=== PATIENT | male | born 1960 | race Caucasian/White ===

== ENCOUNTER → 2021-09-25 13:59 | Outpatient (BNVA) | payer BC, SELFPAY | PROVIDERS: Visit Provider Family Medicine | DX: R06.02 Shortness of breath (principal) | CPT/HCPCS: 71046 ==

== ENCOUNTER → 2022-02-20 13:22 | Outpatient (BNVA) | payer BC, SELFPAY | PROVIDERS: Visit Provider Emergency Medicine | DX: R69 Illness, unspecified (principal) | CPT/HCPCS: 87400 ==

== ENCOUNTER 2022-03-09 15:31 | Emergency (ER) | payer BC, MEDICAID, SELFPAY ==
[2022-03-09 15:36] VITALS: BP 162/88; PULSE 96; RESP 18; TEMP 36.7; O2SAT 98
--- NOTE | 2022-03-09 15:51 | W.ED.ABDPA2 ---
HPI - Abdominal Pain General: Chief Complaint: Abdominal Pain Stated Complaint: Abd pains on Left side Time Seen by Provider: 03/09/22 15:46 Source: patient Mode of arrival: ambulatory History of Present Illness: 62-year-old male presents emergency room complaining of left inguinal pain. Patient reports left ilioinguinal pain and discomfort. This pain began about a week and a half ago after he lifted a heavy bucket of hydraulic fluid. It is decreased when he lays flat it is worse when he is up and moving around he states he gets worse as the day goes on when he is trying to work. He was initially seen by his primary care doctor and then seen in the emergency room in [facility] he states they did a CT and said he had some herniations. On further discussion there is a concern of hernias he relates they told him 1 in his inguinal region and another in his umbilicus. He has not had any nausea or vomiting or diarrhea he is not hematochezia or melena he has been able to eat or drink without any difficulty. MD elicited complaint: other (Left inguinal pain) Pertinent past history: other (Stomal hernia began suddenly while lifting heavy object) Onset (ago): day(s) (9) Pain Consistency: constant Location: Groin Severity: moderate Quality: sharp Radiation: other (Left thigh) Exacerbating factors: nothing Relieving factors: nothing Associated Symptoms: Reports GI cramping; Denies anorexia, belching, bloating, change in bowel habits, change in stool character, chills, coffee ground emesis, constipation, diarrhea, dyspepsia, dysuria, excessive flatus, fever(s), heartburn, hematochezia, hematuria, hematemesis, fecal incontinence, loose stools, melena, nausea, poor appetite, syncope and vomiting Review of Systems Const: Denies: fever(s), chills, fatigue or malaise ENMT: Denies: throat pain, ear or mastoid pain, nasal discharge or nasal congestion Card: Denies: chest pain, palpitations, irregular heart rhythm, edema, swelling of feet/ankles or syncope Resp: Denies: dyspnea, productive cough or non-productive cough GI: Reports: GI cramping; Denies: abdominal pain, nausea, vomiting, hematemesis, coffee ground emesis, heartburn, diarrhea, constipation, bloating, belching, excessive flatus, fecal incontinence, change in bowel habits, change in stool character, hematochezia or melena : Denies: dysuria or hematuria Skin/Breast: Denies: rash or pruritus PFSH ED PFSH: Medical History (Updated 03/09/22 @ 16:14 by Dima Panda DO) GERD (gastroesophageal reflux disease) Surgical History (Updated 03/09/22 @ 16:14 by Dima Panda DO) No significant past surgical history Social History (Updated 03/09/22 @ 16:15 by Dima Panda DO) Smoking and tobacco status: never smoked Physical Exam Const: GENERAL APPEARANCE: cooperative and comfortable ORIENTATION/CONSCIOUSNESS: Yes awake, Yes oriented to person, Yes oriented to place and Yes oriented to time HENMT: COMMON NORMALS: normocephalic, atraumatic and hearing grossly normal bilaterally HEAD & SCALP: normocephalic and atraumatic Resp: COMMON NORMALS: normal respiratory effort, No retractions, No use of accessory muscles and clear to auscultation bilaterally AUSCULTATION: clear to auscultation bilaterally Cardio: COMMON NORMALS: regular rate, regular rhythm and No murmurs present (Cardio) RATE: regular rate RHYTHM: regular rhythm GI: COMMON NORMALS: Soft to palpation and No hepatosplenomegaly present AUSCULTATION: Yes normoactive bowel sounds PALPATION: Yes Soft to palpation, No Tenderness to palpation present (GI), No Guarding due to palpation present (GI) and Yes No hepatosplenomegaly present OTHER: Buccal hernia defect but no herniation present. Examination of the left ilioinguinal area ilioinguinal ligament is exquisitely tender there is no identifiable inguinal hernia direct or indirect. Extremity: COMMON NORMALS: normal to inspection, capillary refill normal, no clubbing, cyanosis or edema, no calf tenderness and no pedal edema Neuro: SENSORIUM/ORIENTATION: Yes oriented to person, Yes oriented to place and Yes oriented to time DEEP TENDON REFLEXES: Right patellar reflex intensity grade: 2+ and Left patellar reflex intensity grade: 2+ OTHER: Dorsum plantar flexion strength 5 of 5 sensation lower extremities normal Skin: COMMON NORMALS: no rashes or lesions noted GENERAL SKIN EXAM: no rashes or lesions noted Course Vital Signs: Vital signs: Vital Signs Temperature 98.1 F 03/09/22 15:36 Pulse Rate 96 01/13/23 15:36 Respiratory Rate 18 03/09/22 15:36 Blood Pressure 162/88 03/09/22 15:36 Pulse Oximetry 98 03/09/22 15:36 MDM - Abdominal Pain Medical Decision Making Exam shows no evidence of nerve impingement and was talking to him initially I thought he is that he had herniated disc. On exam I can palpate is umbilical hernia defect but there is no hernias tracts protruding through no physical exam findings of inguinal hernia there is a physical exam finding of exquisite tenderness in that region. Treating with anti-inflammatories muscle relaxers limit activity as tolerated follow-up with primary care if not improving Medical Records I reviewed the patient's medical records. Lab Data I reviewed the patient's lab results. Discharge Plan Discharge Patient Disposition: Home Clinical Impression: Ilio-inguinal strain Condition: Stable Prescriptions: New Medrol (Toni) 4 mg tablets,dose pack See Rx Instructions .ROUTE .COMPLEX Qty: 21 0RF Rx Instructions: orally per package directions tizanidine 4 mg tablet 4 mg PO Q6H PRN (Reason: muscle spasticity) Qty: 20 0RF Rx Instructions: do not exceed 3 doses per 24 hrs No Action albuterol sulfate 90 mcg/actuation HFA aerosol inhaler 2 puff inhalation Q6H PRN (Reason: shortness of breath or wheezing) Qty: 8.5 0RF [id number]-[id number]-GN [Bromfed DM] 2-30-10 mg/5 mL syrup 7.5 ml PO Q6H PRN (Reason: cold symptoms) Qty: 160 0RF doxycycline hyclate 100 mg tablet 100 mg PO BID 7 Days Qty: 14 0RF oseltamivir [Tamiflu] 75 mg capsule 75 mg PO BID 5 Days Qty: 10 0RF prednisone 20 mg tablet 20 mg PO DAILY 5 Days Qty: 5 0RF famotidine [Pepcid] 40 mg tablet 40 mg PO BID 56 Days Qty: 120 0RF Discharge Orders: Discharge ED (Routine); Ordered 03/09/22 Ordered By: Dima Panda Referrals: Anum Morales MD [Primary Care Provider] - Discharge Diet: Usual diet Discharge Activity: Resume usual activity Patient Instructions: Opioid Safety, Pain Management Activity Restrictions/Additional Instructions: You are seen today for pain in the left groin. On exam there was no sign of hernias and no signs of nerve impingement to the left lower extremity. You did have severe discomfort with palpation on the ilioinguinal ligament. Given the history related suspect you have a muscle strain in that region. You were given prednisone taper and muscle relaxer tizanidine. You can use Tylenol with this as well. You had an allergy listed to naproxen so you were not given any nonsteroidal anti-inflammatories. 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
[2022-03-09] MEDS: dexamethasone 10 mg/mL INJ IM (16:27)
[2022-03-09] MEDS: orphenadrine 30 mg/mL Inj 2 mL 60 MG IM (16:28)
== END 2022-03-09 16:37 | disposition home or self-care (01) ==
PROVIDERS: Emergency Provider Family Medicine; PCP Family Medicine
DX: S39.011A Strain of muscle, fascia and tendon of abdomen, initial encounter (principal); X50.0XXA Overexertion from strenuous movement or load, initial encounter
CPT/HCPCS: 96372; 99284; J1100; J2360

== ENCOUNTER 2022-05-10 07:48 | Day surgery (SDC) | payer BC, MEDICAID, SELFPAY ==
[2022-05-10] VITALS (16 sets, daily range): BP systolic 140–175; BP diastolic 80–117; PULSE 67–90; RESP 13–19; TEMP 36.2–36.8; O2SAT 92–99; BMI 32.8
--- NOTE | 2022-05-10 08:03 | W.PM.OPSUD ---
Surgery/Procedure H&P Update DATE OF PROCEDURE: May 10, 2022 DATE H&P PERFORMED: 04/17/22 H&P UPDATE INFORMATION: I have reviewed H&P completed within last 30 days, I have examined patient prior to procedure and No changes to prior documentation PREOP DIAGNOSIS: Left inguinal and umbilical hernias PLANNED PROCEDURE: Operation Date: 05/10/22 09:35 Proposed Procedures p 32429 [id number] lap reapir of left inguinal hernia with mesh and lap umbilical hernia repair with mesh K42.9 K40.90(Left) - DO colby Nguyen Laparoscopic Ventral Hernia Repair Laparoscopic Umbilical Hernia Repair(Not Applicable) - Андрей Jaimes DO
[2022-05-10] MEDS: sodium chloride 0.9% 1,000 ML 30 ML IV (08:56)
--- NOTE | 2022-05-10 08:59 | ANES.PREANE2 ---
Pre-Anesthetic Assessment Height/Weight: Height 1.83 m Weight 109.769 kg Temp Pulse Resp BP Pulse Ox O2 Del Method 97.7 F 83 18 162/95 99 05/10/22 08:30 05/10/22 08:30 05/10/22 08:30 05/10/22 08:30 05/10/22 08:30 05/10/22 08:30 Preop Diagnosis: Left inguinal and umbilical hernias Operation Date: 05/10/22 09:35 Proposed Procedures p [id number] lap reapir of left inguinal hernia with mesh and lap umbilical hernia repair with mesh K42.9 K40.90(Left) - DO colby Nguyen Laparoscopic Ventral Hernia Repair Laparoscopic Umbilical Hernia Repair(Not Applicable) - Андрей Jaimes DO Familial anesthetic complications: none Was Beta Freddy taken within 24 hours: N/A Was Clonidine taken within 24 hours: N/A Last intake: Intake Last Liquid Date 05/09/22 Last Liquid Time 23:30 Last Solid Date 05/09/22 Last Solid Time 23:30 Social Tobacco and No alcohol Exam alert, oriented x 3 and regular rate & rhythm rhonchi Airway Submandibular: within normal limits Cervical ROM: within normal limits Mallampati: Class II Dentition: false CV/HEM Hypertension GI Gastroesophageal Reflux Disease Metabolic Morbid Obesity Anesthetic Plan ASA status: 3 Anesthesia: General and Regional (specify below) (Discussed potential rectus sheath blk and left TAP blk) Medications/Allergies Home Medications Medication Instructions Recorded Confirmed Last Taken Type amlodipine 2.5 mg tablet 2.5 mg PO DAILY 90 days #90 tabs 04/26/22 05/09/22 05/08/22 Rx Allergies Allergy/AdvReac Type Severity Reaction Status Date / Time baclofen Allergy Severe throat Verified 05/09/22 08:45 swelling, jaw pain butorphanol [From Stadol] Allergy Mild rash Verified 05/09/22 08:45 tramadol Allergy Mild rash Verified 05/09/22 08:45 naproxen Allergy itch Verified 05/09/22 08:45 prednisone Allergy high BP/ Verified 05/09/22 08:45 anyphalaxis Current Medications Generic Name Dose Route Start Last Admin Trade Name Freq PRN Reason Stop Dose Admin Sodium Chloride 1,000 mls @ 30 mls/hr 05/10/22 08:15 05/10/22 08:56 Sodium Chloride 0.9% IV 05/11/22 08:14 30 mls/hr .Q24H LOU Administration PFSH Anesthesia Medical History (Updated 04/26/22 @ 13:52 by Anum Morales MD) GERD (gastroesophageal reflux disease) Surgical History (Updated 04/26/22 @ 13:44 by Anum Morales MD) No significant past surgical history Family History Mother Diabetes Hypertension Stroke Denies family history of Clotting disorder Chronic kidney disease (CKD) Bleeding disorder Family history of premature coronary artery disease Cancer Thyroid disease Social History Smoking and tobacco status: current every day smoker cigarettes Alcohol intake: former Data Anesthesia Cardiac Studies: No Data to Display
[2022-05-10] MEDS: ceFAZolin 2,000 MG in sodium chloride 0.9% (plus) 50 ML 100 MG IV (09:49)
[2022-05-10] MEDS: lidocaine-epi 2% 20 mL INJ INJECTION (10:19)
--- NOTE | 2022-05-10 11:18 | P.OP_ITS ---
Operative Report Date of procedure: May 10, 2022 Pre-op diagnosis: Preop Diagnosis Left inguinal and umbilical hernias Post-op diagnosis: same Procedure done: Laparoscopic (ADELA) left inguinal hernia and Laparoscopic umbilical hernia repairs with mesh Implants: Left extra-large 3D max Bard mesh 11 cm Ventralight mesh Specimens removed/disposition: Hernia sac Surgeon: Dr. Андрей Jaimes DO Anesthesia: General Estimated blood loss (mL): 5 Complications: None apparent Brief History: This is a very pleasant 62-year-old gentleman with a left inguinal hernia and umbilical hernia. He desires repair of both. The risk and benefits were explained and documented. Procedure: Patient was wheeled into the operative room and placed on the OR table in a khan pine position. Abdomen was inspected prepped and draped in usual sterile fashion. Time-out was performed and all present were in agreement. A 15 blade scalp was used to make a 5 millimeter incision left upper quadrant. A Veress needle was placed into the incision and intra-abdominal insufflation was brought to 15 millimeters of mercury. A 12 millimeter trocar was placed into the left lower quadrant. A 5 mm trocar was placed into the right mid abdomen. The peritoneum was then taken down over the left groin using the Enseal and Endo Kitners. The hernia sac was stripped away from the spermatic cord and an indirect left inguinal hernia was identified. An extra-large 3D max Bard mesh was then placed over the spermatic cord and tacked onto the pubis using the capsure device. The mesh laid nicely over the spermatic cord. The peritoneum was then tacked back in place using a secure strap. Attention was then brought to the umbilical hernia. The energy but device was then used to cut out the hernia sac around the umbilical hernia. An 11 cm Ventralight mesh was placed into the abdomen and brought up through the umbilicus using an the Alejandro- Rain. The mesh was then tacked in place in a double crown fashion. The skeleton of the mesh was removed via the left lower quadrant. The hernia sac was then removed from the abdomen via the left lower quadrant. The left lower quadrant port site was closed with an 0 Vicryl suture in a Alejandro-Rain in a [id number] fashion. Incisions were closed with 4 O Vicryl in a subcuticular interrupted fashion. Skin glue was applied. A dressing that included cotton balls and a Tegaderm was placed over the umbilicus. Patient tolerated the procedure well.
[2022-05-10] MEDS: fentaNYL 50 mcg/mL INJ 2mL IVP ×2 (11:42→12:58)
[2022-05-10] MEDS: hyDRALAzine 20 mg/mL INJ 1 mL 10 MG IVP (12:06)
--- NOTE | 2022-05-10 12:59 | SUR.PHASEII ---
12:45 PT WITH INCREASE IN ABDOMEN PAIN. REVIEWED WITH DOCTOR OCHOA. ABDOMENAL BINDER APPLIED. IV PAIN MED GIVEN.
[2022-05-10] MEDS: HYDROcodone-acetaminophen 10-325 mg Tablet 1 TAB PO (13:06)
--- NOTE | 2022-05-10 14:39 | ANE.PACU2 ---
Inpatient post-anesthesia follow up: Airway intact: Yes Vital signs: Temperature 98.2 F Pulse Rate 90 Respiratory Rate 16 Blood Pressure 147/90 Pulse Oximetry 94 Oxygen Delivery Me thod Room Air Oxygen Flow Rate 6 Fraction of Inspir ed Oxygen Hydration adequate: Yes Nausea and vomiting: No Pain level: 2 Mental status: Baseline
== END 2022-05-10 13:45 | disposition home or self-care (01) ==
PROVIDERS: PCP Family Medicine; Visit Provider Surgery
PROC: (CPT 49650; principal; 2022-05-10 09:25)
PROC: 0WQF4ZZ Repair Abdominal Wall, Percutaneous Endoscopic Approach (ICD-10-PCS; CPT 49591; 2022-05-10 09:25)
DX: K40.90 Unilateral inguinal hernia, without obstruction or gangrene, not specified as recurrent (principal); K42.9 Umbilical hernia without obstruction or gangrene; K21.9 Gastro-esophageal reflux disease without esophagitis; E66.01 Morbid (severe) obesity due to excess calories; F17.210 Nicotine dependence, cigarettes, uncomplicated; Z68.32 Body mass index [BMI] 32.0-32.9, adult
CPT/HCPCS: 49591; 49650; 51702; 88302; C1781; J0360; J0690; J1100; J1170; J1790; J2405; J2704; J2710; J2795; J3010; J3490; J7030

== ENCOUNTER → 2023-05-10 13:51 | Outpatient (BNVA) | payer BC, MEDICAID, SELFPAY | PROVIDERS: PCP Family Medicine; Visit Provider Emergency Medicine | DX: R07.89 Other chest pain (principal); R05.9 Cough, unspecified; R06.00 Dyspnea, unspecified | CPT/HCPCS: 71046 ==

== ENCOUNTER 2023-05-10 15:33 | Emergency (ER) | payer BC, MEDICAID, SELFPAY ==
--- NOTE | 2023-05-10 15:35 | ECG_ITS ---
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 Measurements Intervals [place] Rate: 76 P: 45 OK: 152 QRS: 49 QRSD: 110 T: 42 QT: 383 QTc: 433 Interpretive Statements SINUS RHYTHM WITH SINUS ARRHYTHMIA NONSPECIFIC T-WAVE ABNORMALITY No previous ECG available for comparison Electronically Signed On 05-10-2023 22:01:14 CDT by Guy Friedman M.D. [id number]
[2023-05-10 15:36] VITALS: BP 150/90; PULSE 70; RESP 16; TEMP 36.6; O2SAT 98
[2023-05-10 15:57] VITALS: BP 147/102; PULSE 67; O2SAT 96
--- NOTE | 2023-05-10 16:07 | XRR_ITS ---
PROCEDURE INFORMATION: Exam: XR Chest Exam date and time: 05/10/2023 4:21 PM Age: 63 years old Clinical indication: Cough and dyspnea; Additional info: Dyspnea/cough TECHNIQUE: Imaging protocol: Radiologic exam of the chest. Views: 1 view. COMPARISON: CR XR chest 2V* [id number] 05/10/2023 2:02 PM FINDINGS: Lungs: No focal consolidation. Left basilar hazy opacities compatible with atelectasis or developing infection in the proper clinical setting. Pleural spaces: No evidence of pneumothorax. No evidence of pleural effusion. Heart/Mediastinum: Cardiomediastinal silhouette is within normal limits. Bones/joints: No evidence of acute osseous abnormality. XR/XR chest 1V portable [id number] IMPRESSION: 1. Left basilar hazy opacities compatible with atelectasis or developing infection in the proper clinical setting.
[2023-05-10 16:14] LABS: Basophils # 0.1 10^3/uL (0.0-0.1); Basophils % 0.8 %; Eosinophils # 0.3 10^3/uL (0.0-0.8); Eosinophils % 3.3 %; Lymphocytes # 3.2 10^3/uL (0.8-4.8); Lymphocytes % 35.3 %; Mean Corpuscular HGB Conc 35.2 g/dL (30-55); Mean Corpuscular Hemoglobin 31.6 pg (27-33); Mean Corpuscular Volume 89.8 fl (82-101); Mean Platelet Volume 11.1 fL (7.4-10.4); Monocytes # 0.5 10^3/uL (0.2-0.9); Neutrophils % 54.4 %; Nucleated Red Blood Cells % 0 %; Platelet Count 217 10^3/cmm (157-399); Red Blood Count 5.12 10^6/uL (3.85-5.65); Red Cell Distribution Width 12.9 % (12.1-15.1); White Blood Count 9.01 10^3/uL (3.29-11.43)
--- NOTE | 2023-05-10 16:21 | ED_ITS ---
Documented by User: Dima Panda DO 05/11/23 08:27 HPI - Chest Pain 2 General: Chief Complaint: Chest Pain Stated Complaint: chest pains Time Seen by Provider: 05/10/23 16:06 Source: patient Mode of arrival: ambulatory History of Present Illness: 63-year-old male presents emergency room directed here for the primary care clinic. He is seeing one of the nurse practitioners who advised an he had abnormal heart sounds and abnormal EKG. He is also complaining of some chest discomfort. Do not have a copy of the EKG from the clinic but his EKG in the emergency room showed normal sinus rhythm with no specific abnormalities no ST changes. He is complaining of what he describes as a sticky spot on the left side of his chest with some pain in his back none of the pain is reproducible has not noticed anything that exacerbates or relieves the discomfort. MD complaint: chest pain Associated symptoms: Deny abdominal pain, dyspnea or fever(s) Review of Systems 2 Const: Denies: fever(s) or chills Card: Denies: chest pain Resp: Denies: dyspnea GI: Denies: abdominal pain : Denies: dysuria, urinary frequency or urinary urgency Musc: Denies: neck pain or back pain Skin/Breast: Denies: rash PFSH ED 2 PFSH: Medical History GERD (gastroesophageal reflux disease) Surgical History History of umbilical hernia repair History of left inguinal hernia repair No significant past surgical history Family History Mother Diabetes Hypertension Stroke Denies family history of Clotting disorder Chronic kidney disease (CKD) Bleeding disorder Family history of premature coronary artery disease Cancer Thyroid disease Social History Smoking and tobacco/nicotine status: current every day tobacco/nicotine user cigarettes Alcohol intake: former Physical Exam 2 Const: COMMON NORMALS: no acute distress GENERAL APPEARANCE: cooperative and comfortable ORIENTATION/CONSCIOUSNESS: Yes awake, Yes oriented to person, Yes oriented to place and Yes oriented to time HENMT: COMMON NORMALS: normocephalic, atraumatic and hearing grossly normal bilaterally HEAD & SCALP: normocephalic and atraumatic Resp: COMMON NORMALS: normal respiratory effort, No retractions and No use of accessory muscles AUSCULTATION: rales on the left in the lower lung hurtado Cardio: COMMON NORMALS: regular rate, regular rhythm and No murmurs present (Cardio) RATE: regular rate RHYTHM: regular rhythm GI: COMMON NORMALS: Soft to palpation and No hepatosplenomegaly present A USCULTATION: Yes normoactive bowel sounds PALPATION: Yes Soft to palpation, No Tenderness to palpation present (GI), No Guarding due to palpation present (GI) and Yes No hepatosplenomegaly present Extremity: COMMON NORMALS: normal to inspection, capillary refill normal, no clubbing, cyanosis or edema, no calf tenderness and no pedal edema Neuro: SENSORIUM/ORIENTATION: Yes oriented to person, Yes oriented to place and Yes oriented to time Skin: COMMON NORMALS: no rashes or lesions noted GENERAL SKIN EXAM: no rashes or lesions noted Course 2 Vital Signs: Vital signs: Vital Signs Temperature 97.9 F 05/10/23 15:36 Pulse Rate 63 05/10/23 18:30 Respiratory Rate 16 05/10/23 15:36 Blood Pressure 127/96 05/10/23 18:30 Pulse Oximetry 90 05/10/23 18:30 Oxygen Delivery Me thod Room Air 05/10/23 18:30 MDM - Chest Pain Medical Decision Making Care signed out to Dr. Hardin at change of shift. See final notes for diagnosis and disposition. I have discussed the patient's case with the off going physician <Dr. Panda> and I have assumed care of the patient. We have discussed the current lab/radiographic results that have been resulted and the pending tests. Given review of the patient's laboratory evaluation radiograph examination and discussion Dr. Panda I will contact the hospitalist physician to request admission for left lower lobe pneumonia and will provide antibiotics initially while here in the emergency department. Medical Records I reviewed the patient's medical records. Lab Data I reviewed the patient's lab results. 05/10/23 16:02 05/10/23 16:02 Radiology Impressions Chest X-Ray 05/10/23 16:07 IMPRESSION: 1. Left basilar hazy opacities compatible with atelectasis or developing infection in the proper clinical setting. Laboratory Results WBC 9.01 10^3/uL (3.29-11.43) 05/10/23 16:02 RBC 5.12 10^6/uL (3.85-5.65) 05/10/23 16:02 Hgb 16.20 g/dL (11.27-16.99) 05/10/23 16:02 Hct 46.0 % (37-53) 05/10/23 16:02 MCV 89.8 fl (82-101) 05/10/23 16:02 MCH 31.6 pg (27-33) 05/10/23 16:02 MCHC 35.2 g/dL (30-55) 05/10/23 16:02 RDW 12.9 % (12.1-15.1) 05/10/23 16:02 Plt Count 217 10^3/cmm (157-399) 05/10/23 16:02 MPV 11.1 fL (7.4-10.4) H 05/10/23 16:02 Neut % (Auto) 54.4 % 05/10/23 16:02 Lymph % (Auto) 35.3 % 05/10/23 16:02 [place] % (Auto) 6.0 % 05/10/23 16:02 Eos % (Auto) 3.3 % 05/10/23 16:02 Baso % (Auto) 0.8 % 05/10/23 16:02 Neut # (Auto) 4.90 10^3/uL (1.8-7.7) 05/10/23 16:02 Lymph # (Auto) 3.2 10^3/uL (0.8-4.8) 05/10/23 16:02 [place] # (Auto) 0.5 10^3/uL (0.2-0.9) 05/10/23 16:02 Eos # (Auto) 0.3 10^3/uL (0.0-0.8) 05/10/23 16:02 Baso # (Auto) 0.1 10^3/uL (0.0-0.1) 05/10/23 16:02 Nucleated RBC % (auto) 0 % 05/10/23 16:02 Nucleated RBCs # 0.0 /100WBC 05/10/23 16:02 Sodium 141 mmol/L (136-145) 05/10/23 16:02 Potassium 4.0 mmol/L (3.5-5.1) 05/10/23 16:02 Chloride 105 mmol/L (98-107) 05/10/23 16:02 Carbon Dioxide 22 mmol/L (22-29) 05/10/23 16:02 Anion Gap 18.0 (5-19) 05/10/23 16:02 BUN 14 mg/dL (8-23) 05/10/23 16:02 Creatinine 0.9 mg/dL (0.7-1.2) 05/10/23 16:02 GFR Calculation 85.8 mL/min (90-130) L 05/10/23 16:02 Glucose 88 mg/dL (65-115) 05/10/23 16:02 Calculated Osmolality 292 mOsm/kg (285-295) 05/10/23 16:02 Calcium 9.4 mg/dL (8.5-10.5) 05/10/23 16:02 Total Bilirubin 0.6 mg/dL (0.15-1.2) 05/10/23 16:02 AST 16 U/L (0-40) 05/10/23 16:02 ALT 20 U/L (0-41) 05/10/23 16:02 Alkaline Phosphatase 104 U/L (40-130) 05/10/23 16:02 Troponin T Baseline < 6 ng/L (0-15) 05/10/23 16:02 Troponin T 120 Minute 6.00 ng/L (0-15) 05/10/23 17:46 Delta Troponin T 0.94679 ABS# (0-10) 05/10/23 17:46 Total Protein 7.0 g/dL (6.6-8.7) 05/10/23 16:02 Albumin 4.6 g/dL (3.5-5.2) 05/10/23 16:02 Globulin 2.4 g/dL (1.3-4.6) 05/10/23 16:02 Procalcitonin 0.08 ng/mL (0-0.5) 05/10/23 17:46 Discharge Plan Discharge Patient Disposition: Home Clinical Impression: Chest pain in adult PNA (pneumonia) Qualifiers: Pneumonia type: due to unspecified organism Laterality: left Lung location: l ower lobe of lung Qualified Code(s): J18.9 - Pneumonia, unspecified organism Condition: Stable Prescriptions: New levofloxacin 750 mg tablet 750 mg PO DAILY 7 Days Qty: 7 0RF guaifenesin 1,200 mg tablet extended release 12hr 1,200 mg PO BID Qty: 14 0RF No Action albuterol sulfate 90 mcg/actuation HFA aerosol inhaler 2 puff inhalation QID PRN (Reason: shortness of breath or wheezing) Qty: 8.5 0RF Discharge Orders: Discharge ED (Routine); Ordered 05/10/23 Ordered By: Anthony Hardin Referrals: Андрей Jaimes DO [Physician] - (EGD/colonoscopy) Anum Morales MD [Primary Care Provider] - Discharge Diet: Usual diet Discharge Activity: Resume usual activity Patient Instructions: Opioid Safety, Pain Management Activity Restrictions/Additional Instructions: Activity Restrictions/Additional Instructions: Thank you for choosing [facility] for your healthcare needs today. Please realize that you were seen in the Emergency Department and that we are providing you with an emergency medical screening exam and this may not be a complete and all inclusive of all the testing and or medical work-up that you may need to determine your ailment or severity of your illness. It is very important that you follow-up as instructed with your Primary care provider or Specialist for additional evaluation and to discuss your medical treatment plan. You may return to the Emergency Department should you have concerns or if your condition changes or worsens in any way. Coding Level of Care Code ED Gymnastics Coach for Chg Fwd Documented by User: Anthony Hardin MD 05/10/23 19:39 HPI - Chest Pain 2 General: Chief Complaint: Chest Pain Stated Complaint: chest pains Time Seen by Provider: 05/10/23 16:06 [facility] ED 2 PFSH: Medical History GERD (gastroesophageal reflux disease) Surgical History History of umbilical hernia repair History of left inguinal hernia repair No significant past surgical history Family History Mother Diabetes Hypertension Stroke Denies family history of Clotting disorder Chronic kidney disease (CKD) Bleeding disorder Family history of premature coronary artery disease Cancer Thyroid disease Social History Smoking and tobacco/nicotine status: current every day tobacco/nicotine user cigarettes Alcohol intake: former Course 2 Vital Signs: Vital signs: Vital Signs Temperature 97.9 F 05/10/23 15:36 Pulse Rate 63 05/10/23 18:30 Respiratory Rate 16 05/10/23 15:36 Blood Pressure 127/96 05/10/23 18:30 Pulse Oximetry 90 05/10/23 18:30 Oxygen Delivery Me thod Room Air 05/10/23 18:30 MDM - Chest Pain Medical Decision Making I have discussed the patient's case with the off going physician <Dr. Panda> and I have assumed care of the patient. We have discussed the current lab/radiographic results that have been resulted and the pending tests. Given review of the patient's laboratory evaluation radiograph examination and discussion Dr. Panda I will contact the hospitalist physician to request admission for left lower lobe pneumonia and will provide antibiotics initially while here in the emergency department. Lab Data 05/10/23 16:02 05/10/23 16:02 Radiology Impressions Chest X-Ray 05/10/23 16:07 IMPRESSION: 1. Left basilar hazy opacities compatible with atelectasis or developing infection in the proper clinical setting. Laboratory Results WBC 9.01 10^3/uL (3.29-11.43) 05/10/23 16:02 RBC 5.12 10^6/uL (3.85-5.65) 05/10/23 16:02 Hgb 16.20 g/dL (11.27-16.99) 05/10/23 16:02 Hct 46.0 % (37-53) 05/10/23 16:02 MCV 89.8 fl (82-101) 05/10/23 16:02 MCH 31.6 pg (27-33) 05/10/23 16:02 MCHC 35.2 g/dL (30-55) 05/10/23 16:02 RDW 12.9 % (12.1-15.1) 05/10/23 16:02 Plt Count 217 10^3/cmm (157-399) 05/10/23 16:02 MPV 11.1 fL (7.4-10.4) H 05/10/23 16:02 Neut % (Auto) 54.4 % 05/10/23 16:02 Lymph % (Auto) 35.3 % 05/10/23 16:02 [place] % (Auto) 6.0 % 05/10/23 16:02 Eos % (Auto) 3.3 % 05/10/23 16:02 Baso % (Auto) 0.8 % 05/10/23 16:02 Neut # (Auto) 4.90 10^3/uL (1.8-7.7) 05/10/23 16:02 Lymph # (Auto) 3.2 10^3/uL (0.8-4.8) 05/10/23 16:02 [place] # (Auto) 0.5 10^3/uL (0.2-0.9) 05/10/23 16:02 Eos # (Auto) 0.3 10^3/uL (0.0-0.8) 05/10/23 16:02 Baso # (Auto) 0.1 10^3/uL (0.0-0.1) 05/10/23 16:02 Nucleated RBC % (auto) 0 % 05/10/23 16:02 Nucleated RBCs # 0.0 /100WBC 05/10/23 16:02 Sodium 141 mmol/L (136-145) 05/10/23 16:02 Potassium 4.0 mmol/L (3.5-5.1) 05/10/23 16:02 Chloride 105 mmol/L (98-107) 05/10/23 16:02 Carbon Dioxide 22 mmol/L (22-29) 05/10/23 16:02 Anion Gap 18.0 (5-19) 05/10/23 16:02 BUN 14 mg/dL (8-23) 05/10/23 16:02 Creatinine 0.9 mg/dL (0.7-1.2) 05/10/23 16:02 GFR Calculation 85.8 mL/min (90-130) L 05/10/23 16:02 Glucose 88 mg/dL (65-115) 05/10/23 16:02 Calculated Osmolality 292 mOsm/kg (285-295) 05/10/23 16:02 Calcium 9.4 mg/dL (8.5-10.5) 05/10/23 16:02 Total Bilirubin 0.6 mg/dL (0.15-1.2) 05/10/23 16:02 AST 16 U/L (0-40) 05/10/23 16:02 ALT 20 U/L (0-41) 05/10/23 16:02 Alkaline Phosphatase 104 U/L (40-130) 05/10/23 16:02 Troponin T Baseline < 6 ng/L (0-15) 05/10/23 16:02 Troponin T 120 Minute 6.00 ng/L (0-15) 05/10/23 17:46 Delta Troponin T 0.10710 ABS# (0-10) 05/10/23 17:46 Total Protein 7.0 g/dL (6.6-8.7) 05/10/23 16:02 Albumin 4.6 g/dL (3.5-5.2) 05/10/23 16:02 Globulin 2.4 g/dL (1.3-4.6) 05/10/23 16:02 Procalcitonin 0.08 ng/mL (0-0.5) 05/10/23 17:46 All radiology interpretation(s) finalized by discharge EKG Data EKG 1: Interpretation: Twelve-lead EKG obtained at 1717 reviewed at 1745 demonstrates sinus rhythm with a rate of 61 bpm, CA interval 163, QRS duration 115 QT 408 QTc [address] elevation or depression at present to demonstrate acute ischemia or infarction. Discharge Plan Discharge Patient Disposition: Home Clinical Impression: Chest pain in adult PNA (pneumonia) Qualifiers: Pneumonia type: due to unspecified organism Laterality: left Lung location: l ower lobe of lung Qualified Code(s): J18.9 - Pneumonia, unspecified organism Condition: Stable Prescriptions: New levofloxacin 750 mg tablet 750 mg PO DAILY 7 Days Qty: 7 0RF guaifenesin 1,200 mg tablet extended release 12hr 1,200 mg PO BID Qty: 14 0RF No Action albuterol sulfate 90 mcg/actuation HFA aerosol inhaler 2 puff inhalation QID PRN (Reason: shortness of breath or wheezing) Qty: 8.5 0RF Discharge Orders: Discharge ED (Routine); Ordered 05/10/23 Ordered By: Anthony Hardin Referrals: Андрей Jaimes DO [Physician] - (EGD/colonoscopy) Anum Morales MD [Primary Care Provider] - Discharge Diet: Usual diet Discharge Activity: Resume usual activity Patient Instructions: Opioid Safety, Pain Management Activity Restrictions/Additional Instructions: Activity Restrictions/Additional Instructions: Thank you for choosing [facility] for your healthcare needs today. Please realize that you were seen in the Emergency Department and that we are providing you with an emergency medical screening exam and this may not be a complete and all inclusive of all the testing and or medical work-up that you may need to determine your ailment or severity of your illness. It is very important that you follow-up as instructed with your Primary care provider or Specialist for additional evaluation and to discuss your medical treatment plan. You may return to the Emergency Department should you have concerns or if your condition changes or worsens in any way. Coding Level of Care Code ED Gymnastics Coach for Eduardo Callaway
[2023-05-10 16:27] VITALS: BP 124/88; PULSE 64; O2SAT 95
[2023-05-10 16:32] LABS: Troponin(5th) Baseline < 6 ng/L (0-15)
[2023-05-10 16:34] LABS: Alanine Aminotransferase 20 U/L (0-41); Albumin Level 4.6 g/dL (3.5-5.2); Alkaline Phosphatase 104 U/L (40-130); Aspartate Amino Transferase 16 U/L (0-40); Blood Urea Nitrogen 14 mg/dL (8-23); Calcium 9.4 mg/dL (8.5-10.5); Carbon Dioxide 22 mmol/L (22-29); Chloride 105 mmol/L (98-107); Globulin 2.4 g/dL (1.3-4.6); Glomerular Filtration Rate 85.8 mL/min (90-130); Glucose 88 mg/dL (65-115); Osmolality Calculated 292 mOsm/kg (285-295); Sodium 141 mmol/L (136-145); Total Bilirubin 0.6 mg/dL (0.15-1.2)
--- NOTE | 2023-05-10 17:17 | ECG_ITS ---
[facility] Test Date: 2023-05-10 Pat Name: Jin Kahn Department: Room: Gender: Male Linoleum Printer: : 1960 Requested By: Rylie Moore Order Number: [id number] Nicole MD: Guy Friedman M.D. Measurements Intervals [place] Rate: 61 P: 48 AR: 163 QRS: 52 QRSD: 115 T: 41 QT: 408 QTc: 411 Interpretive Statements SINUS RHYTHM WITH SINUS ARRHYTHMIA MODERATE INTRAVENTRICULAR CONDUCTION DELAY [110+ ms QRS DURATION] Compared to ECG 05/10/2023 15:37:25 Intraventricular conduction delay now present T-wave abnormality no longer present Electronically Signed On 05-10-2023 22:03:53 CDT by Guy Friedman M.D. [id number]
[2023-05-10 17:27] VITALS: BP 119/74; PULSE 62; O2SAT 95
[2023-05-10 18:00] VITALS: BP 131/86; PULSE 63; O2SAT 91
[2023-05-10 18:19] LABS: Troponin 5 2HR Delta 0.00001 ABS# (0-10)
[2023-05-10 18:30] VITALS: BP 127/96; PULSE 63; O2SAT 90
--- NOTE | 2023-05-10 19:11 | PC.NURSE ---
PER DR. PRYOR TOLD TO HOLD LEVAQUIN ABX AND TO GIVE ROCEPHIN ALTERNATIVELY. DR. PRYOR TO ORDER NEW ABX.
[2023-05-10 19:41] LABS: Procalcitonin 0.08 ng/mL (0-0.5)
[2023-05-10] MEDS: cefTRIAXone 2,000 MG in sodium chloride 0.9% (plus) 50 ML 100 MG IV (19:50)
== END 2023-05-10 20:23 | disposition home or self-care (01) ==
PROVIDERS: Physician Assistant; Emergency Provider Internal Medicine; PCP Family Medicine
DX: R07.9 Chest pain, unspecified (principal); J18.9 Pneumonia, unspecified organism; F17.210 Nicotine dependence, cigarettes, uncomplicated
CPT/HCPCS: 36415; 71045; 80053; 84145; 84484; 85025; 93005; 96365; 99285; J0696

== ENCOUNTER → 2023-05-22 11:36 | Outpatient (BNVA) | payer BC, MEDICAID, SELFPAY | PROVIDERS: PCP Family Medicine; Visit Provider Emergency Medicine | DX: J18.9 Pneumonia, unspecified organism (principal) | CPT/HCPCS: 71046 ==

== ENCOUNTER → 2023-11-19 11:15 | Outpatient (BNVA) | payer BC, MEDICAID, SELFPAY | PROVIDERS: PCP Family Medicine; Visit Provider Nurse Practitioner | DX: J20.9 Acute bronchitis, unspecified (principal); R05.9 Cough, unspecified | CPT/HCPCS: 71046 ==

== ENCOUNTER → 2024-07-21 09:59 | Outpatient (BNVA) | payer BC, MEDICAID, SELFPAY | PROVIDERS: PCP Family Medicine; Visit Provider Nurse Practitioner | DX: I10 Essential (primary) hypertension (principal) | CPT/HCPCS: 80053; 83036; 84443 ==

== ENCOUNTER 2024-07-22 11:28 | Emergency (ER) | payer BC, MEDICAID, SELFPAY ==
[2024-07-22 11:29] VITALS: BP 153/99; PULSE 69; RESP 16; TEMP 36.8; O2SAT 98
--- NOTE | 2024-07-22 11:37 | ECG_ITS ---
[facility] Test Date: 2024-07-22 Pat Name: Jin Kahn Department: Room: Gender: Male Audit Senior Associate: : [id number] Requested By: Chapo Chou Order Number: [id number] Reading MD: BATSHEVA GRANDE Measurements Intervals [place] Rate: 64 P: 56 NV: 151 QRS: 57 QRSD: 110 T: 37 QT: 387 QTc: 401 Interpretive Statements SINUS RHYTHM NONSPECIFIC T-WAVE ABNORMALITY Compared to ECG 05/10/2023 17:17:08 T-wave abnormality now present Sinus arrhythmia no longer present Intraventricular conduction delay no longer present Electronically Signed On 07-29-2024 22:47:08 CDT by BATSHEVA GRANDE [id number]
--- NOTE | 2024-07-22 11:54 | XRR_ITS ---
PROCEDURE INFORMATION: Exam: XR Chest Exam date and time: 07/22/2024 12:44 PM Age: 64 years old Clinical indication: Dyspnea TECHNIQUE: Imaging protocol: Radiologic exam of the chest. Views: 1 view. COMPARISON: CR XR chest 2V* [id number] 11/19/2023 11:29 AM FINDINGS: Lungs: Unremarkable. No consolidation. Pleural spaces: Unremarkable. No pleural effusion. No pneumothorax. Heart/Mediastinum: Unremarkable. No cardiomegaly. Bones/joints: Unremarkable. XR/XR chest 1V portable [id number] IMPRESSION: No acute findings.
[2024-07-22 12:34] LABS: Basophils # 0.1 10^3/uL (0.0-0.1); Basophils % 0.7 %; Eosinophils # 0.4 10^3/uL (0.0-0.8); Eosinophils % 4.1 %; Hematocrit 47.4 % (37-53); Lymphocytes # 2.7 10^3/uL (0.8-4.8); Lymphocytes % 28.1 %; Mean Corpuscular HGB Conc 34.8 g/dL (30-55); Mean Corpuscular Hemoglobin 31.8 pg (27-33); Mean Corpuscular Volume 91.3 fl (82-101); Mean Platelet Volume 11.5 fL (7.4-10.4); Monocytes # 0.5 10^3/uL (0.2-0.9); Monocytes % 5.2 %; Neutrophils # 6.01 10^3/uL (1.8-7.7); Neutrophils % 61.6 %; Nucleated Red Blood Cells % 0 %; Platelet Count 206 10^3/cmm (157-399); Red Blood Count 5.19 10^6/uL (3.85-5.65); Red Cell Distribution Width 13.5 % (12.1-15.1); White Blood Count 9.76 10^3/uL (3.29-11.43)
[2024-07-22 12:53] VITALS: BP 149/95
[2024-07-22 12:55] LABS: Alanine Aminotransferase 21 U/L (0-41); Albumin Level 4.4 g/dL (3.5-5.2); Alkaline Phosphatase 102 U/L (40-130); Aspartate Amino Transferase 18 U/L (0-40); Blood Urea Nitrogen 14 mg/dL (8-23); Calcium 9.4 mg/dL (8.5-10.5); Carbon Dioxide 24 mmol/L (22-29); Chloride 106 mmol/L (98-107); Creatinine Clr Calc Pharmacy 99.7759; Globulin 2.4 g/dL (1.3-4.6); Glomerular Filtration Rate 75.7 mL/min (90-130); Glucose 85 mg/dL (65-115); Osmolality Calculated 294 mOsm/kg (285-295); Sodium 142 mmol/L (136-145); Total Bilirubin 0.4 mg/dL (0.15-1.2); Total Protein 6.8 g/dL (6.6-8.7)
[2024-07-22 12:58] LABS: Troponin(5th) Baseline < 6 ng/L (0-15)
[2024-07-22 12:59] LABS: Anion Gap 16.2 (5-19); Potassium 4.2 mmol/L (3.5-5.1)
== END 2024-07-22 14:10 | disposition left against medical advice (07) ==
PROVIDERS: Emergency Medicine; Emergency Provider Family Medicine; PCP Family Medicine
DX: R06.00 Dyspnea, unspecified (principal); R94.31 Abnormal electrocardiogram [ECG] [EKG]; Z53.21 Procedure and treatment not carried out due to patient leaving prior to being seen by health care provider
CPT/HCPCS: 36415; 71045; 80053; 84484; 85025; 93005; 99285

== ENCOUNTER 2024-08-04 07:47 | Outpatient (CLI) | payer BC, MEDICAID, SELFPAY ==
--- NOTE | 2024-08-04 08:00 | CT_ITS ---
WS: [id number] LDCT LUNG CANCER SCREENING HISTORY: Z12.2 - Encounter for screening for malignant neoplasm of... TECHNIQUE: Axial imaging performed from the apices to 1 cm below the costophrenic angles. Coronal and sagittal reformats are submitted with axial MIP series. All CT scans at [facility] use at least one of these dose optimization techniques: automated exposure control; mA and/or kV adjustment per patient size (includes targeted exams where dose is matched to clinical indication); or iterative reconstruction. DLP: 119.59 mGy.cm DIvol: Mean CTDIvol: 2.40 (mGy) COMPARISON: None available. Diagnostic quality: Satisfactory Lungs: Partially calcified 3 mm nodule LEFT lower lobe, image 201 series 4. No masses or endobronchial lesions. Heart: Normal size heart with no pericardial effusion.. Other findings: No pathologically enlarged lymph nodes. Mild atherosclerosis aorta. Low-attenuation mass in the superior RIGHT lobe of the liver measures 2.1 cm and is likely a cyst. Hounsfield units are low. 14 mm RIGHT adrenal adenoma. CT/CT lung screening [id number] IMPRESSION: LUNG-RADS: 2S-Benign Appearance or Behavior with Significant Findings FOLLOW UP: 12 Month: Continue annual screening with LDCT OTHER FINDINGS (S MODIFIER): RIGHT adrenal adenoma, 14 mm. Low-attenuation mass in the RIGHT lobe of the liver measures 2.1 cm. Hounsfield units are low suggesting this is probably a cyst. Cyst can be confirmed by RIG HT upper quadrant ultrasound evaluation.
== END 2024-08-04 07:48 | disposition home or self-care (01) ==
PROVIDERS: PCP Family Medicine; Visit Provider Family Medicine
DX: Z12.2 Encounter for screening for malignant neoplasm of respiratory organs (principal); F17.210 Nicotine dependence, cigarettes, uncomplicated; R91.1 Solitary pulmonary nodule; I70.0 Atherosclerosis of aorta; R93.2 Abnormal findings on diagnostic imaging of liver and biliary tract; D35.01 Benign neoplasm of right adrenal gland
CPT/HCPCS: 71271

== ENCOUNTER 2024-08-25 07:43 | Outpatient (CLI) | payer BC, MEDICAID, SELFPAY | END 2024-08-25 07:44 | disposition home or self-care (01) | LOC: RT 07:45 | PROVIDERS: PCP Family Medicine; Visit Provider Family Medicine | DX: J41.0 Simple chronic bronchitis (principal) | CPT/HCPCS: 94010; 94726; 94729 ==